=== PATIENT | male | born 1960 | race Caucasian/White ===

== ENCOUNTER → 2017-10-15 | Outpatient (CLI) | payer BC ==
[2014-10-14 09:46] VITALS: BMI 25.1
[~2017-10-15] MED LIST: CYC10 PO; LISI20TA29 PO; LOR5/325 PO; MIRT-1 PO
[2017-10-15 09:54] LABS: LDL CHOLESTEROL 122 mg/dl
== END ==
LOC: LAB 09:03
PROVIDERS: ATTEND Nurse Practitioner Family
DX: Z00.00 Encounter for general adult medical examination without abnormal findings (principal); Z12.5 Encounter for screening for malignant neoplasm of prostate
CPT/HCPCS: 36415; 82040; 82247; 82310; 82374; 82435; 82465; 82565; 82947; 83718; 84075; 84132; 84153; 84155; 84295; 84450; 84460; 84478; 84520